=== PATIENT | female | born 1980 | race Caucasian/White ===

== ENCOUNTER 2023-01-02 13:26 | Outpatient (CLI) | payer MEDICAID, SELFPAY ==
--- NOTE | 2023-01-02 13:32 | MM_ITS ---
WS: [id number] DIAGNOSTIC BILATERAL DIGITAL BREAST TOMOSYNTHESIS MAMMOGRAPHY WITH CAD LEFT breast ultrasound, limited HISTORY: Palpable mass LEFT breast. COMPARISON: 05/25/2017, 12/01/2015 TECHNIQUE: Bilateral craniocaudad, mediolateral oblique, and mediolateral views are submitted with to mosynthesis and SM. Spot compression LEFT MLO. Computer aided detection utilized. Breast composition: The breasts are extremely dense, which lowers the sensitivity of mammography. Jenny asts are extremely dense and nodular in appearance. No distortion. There is dense fibroglandular tiss ue in the palpable region of the LEFT breast as indicated by the patient. Otherwise no obvious change s. Multiple asymmetries are similar to prior studies. Benign calcifications. LEFT breast ultrasound, limited. Palpable nodule LEFT breast corresponds to a simple cyst. Cyst measures 4 x 7 mm. No solid component or increased vascularity. IMPRESSION: MM/[id number] BI-RADS: 2-Benign FOLLOW UP: 1 Year Follow-up Palpable area LEFT breast corresponds to a simple cyst.
== END 2023-01-02 13:27 | disposition home or self-care (01) ==
PROVIDERS: PCP Nurse Practitioner Family; Visit Provider Nurse Practitioner Family
DX: N63.25 Unspecified lump in the left breast, overlapping quadrants (principal)
CPT/HCPCS: 76642; 77062; G0279